=== PATIENT | female | born 1955 | race Caucasian/White ===

== ENCOUNTER 2021-07-10 14:42 | Emergency (ER) | payer MEDICARE ==
[~2021-07-10] VITALS: Ht 157.4 cm; Wt 90.7 kg
[~2021-07-10 14:42] MED LIST: ASPIRIN ADULT L81 M2 PO; HYDR25T PO; KEPPRA1000 MG PO; KEPPRA500 MG PO; LACTULOSE20 GM/30 M PO; LEVOFLOXACIN750 M2 PO; METOPROLOL SUCC50 M1 PO; MUCUS RELIEF600 MG PO; NORVASC10 MG PO; SIMVASTATIN10 MG PO; XANAX0.5 MG PO; XARE20MG PO; ZESTRIL40 MG PO
[2021-07-10] MEDS ORDERED: HYDROCHLOROTHIA25 M1 PO (14:57)
[2021-07-10] MEDS ORDERED: PHARMASSURE FO0.4 MG PO (14:58)
[2021-07-10] MEDS ORDERED: FISH OIL 1,0001 EAC2 PO (14:58)
[2021-07-10 15:58] LABS: BASO # 0.1 10*3/uL (0.0-0.1); BASO % 1.2 % (0.0-1.0); EOS # 0.2 10*3/uL (0.0-0.4); EOS % 2.6 % (1.0-4.0); HEMATOCRIT 36.7 % (37.0-47.0); LYMPH # 2.3 10*3/uL (1.3-4.4); LYMPH % 29.7 % (27.0-41.0); MEAN CELL VOLUME 90.4 fl (81.0-99.0); MEAN CORPUSCULAR HGB 30.8 pg (27.0-31.0); MEAN CORPUSCULAR HGB CONC 34.1 g/dl (33.0-37.0); MEAN PLATELET VOLUME 9.1 fl (9.6-12.3); MONO # 0.8 10*3/uL (0.1-1.0); MONO % 10.8 % (3.0-9.0); NEUT # 4.2 10*3/uL (2.3-7.9); NEUT % 55.4 % (47.0-73.0); PLATELET COUNT AUTOMATED 418 10*3/uL (130-400); RED BLOOD COUNT 4.06 10*6/uL (4.10-5.10); RED CELL DISTRI WIDTH 13.8 % (0-14.5); WHITE BLOOD COUNT 7.6 10*3/uL (4.8-10.8)
[2021-07-10 16:23] LABS: ALBUMIN 3.7 gm/dl (3.1-4.5); ALKALINE PHOSPHATASE 67 U/L (45-117); BUN 9 mg/dl (7-24); CHLORIDE 97 mmol/L (98-107); CREATININE 0.68 mg/dL (0.55-1.02); POTASSIUM 3.5 mmol/L (3.5-5.1); SGOT/AST 30 IU/L (3-35); SGPT/ALT 52 U/L (12-78); SODIUM 129 mmol/L (136-145)
[2021-07-10 16:30] LABS: BILIRUBIN Negative (Negative); BLOOD Negative (Negative); CLARITY Clear (Clear); COLOR Yellow (Yellow); GLUCOSE Negative (Negative); KETONE Negative (Negative); LEUKO ESTERASE Negative (Negative); NITRITE Negative (Negative); SPECIFIC GRAVITY 1.015 (1.001-1.030); UROBILINOGEN 0.2 E.U./dl (0.0-1.0)
[2021-07-10 16:46] LABS: BACTERIA 2+
[2021-07-10 16:47] LABS: EPITHELIAL CELLS 0-2; HYALINE CAST 0-2; WBC 0-2 wbc/hpf (0-5)
[2021-07-10 16:55] LABS: URINE AMPHETAMINES < 1000 (1000ng/ml); URINE BARBITURATES < 200 (200ng/ml); URINE BENZODIAZEPINES > 200 (200ng/ml); URINE CANNABINOIDS (THC) < 50 (50ng/ml); URINE COCAINE < 300 (300ng/ml); URINE METHADONE < 300 (300ng/ml); URINE OPIATES < 300 (300ng/ml); URINE PHENCYCLIDINE < 25 (25ng/ml)
[2021-07-10] MEDS ORDERED: LOW DOSE ASPIRI81 M1 PO ×3 (17:27→17:34)
[2021-07-10] MEDS ORDERED: 'XANAX0.5 MG PO (17:27)
[2021-07-10] MEDS ORDERED: LISINOPRIL40 MG PO ×3 (17:27→17:34)
[2021-07-10] MEDS ORDERED: TENORMIN25 M1 PO ×3 (17:27→17:34)
[2021-07-10] MEDS ORDERED: AMLODIPINE BESY10 MG PO ×3 (17:27→17:34)
[2021-07-10] MEDS ORDERED: ZOCOR10 MG PO ×3 (17:27→17:34)
[2021-07-10] MEDS ORDERED: HYDR25T PO ×3 (17:27→17:34)
[2021-07-10] MEDS ORDERED: B12-FOLIC ACID1 EACH PO ×3 (17:27→17:34)
== END 2021-07-10 17:40 | disposition home or self-care (01) ==
LOC: ED 14:42
PROVIDERS: Emergency Medicine
DX: I10 Essential (primary) hypertension (principal); Z76.0 Encounter for issue of repeat prescription; E78.00 Pure hypercholesterolemia, unspecified; I48.91 Unspecified atrial fibrillation; E78.5 Hyperlipidemia, unspecified; F17.210 Nicotine dependence, cigarettes, uncomplicated; F17.200 Nicotine dependence, unspecified, uncomplicated; Z79.899 Other long term (current) drug therapy

== ENCOUNTER 2021-07-21 12:49 | Inpatient (IN) | payer MEDICARE, MEDICAID ==
[~2021-07-21] VITALS: Ht 157.5 cm; Wt 105.3 kg
[2021-07-21] VITALS (7 sets, daily range): BP systolic 108–155; BP diastolic 60–90
[~2021-07-21 12:49] MED LIST changes: +'XANAX0.5 MG PO; +AMLODIPINE BESY10 MG PO; +B12-FOLIC ACID1 EACH PO; +FISH OIL 1,0001 EAC2 PO; +HYDROCHLOROTHIA25 M1 PO; +LISINOPRIL40 MG PO; +LOW DOSE ASPIRI81 M1 PO; +PHARMASSURE FO0.4 MG PO; +TENORMIN25 M1 PO; +ZOCOR10 MG PO
[2021-07-21 13:19] LABS: BASO # 0.1 10*3/uL (0.0-0.1); BASO % 1.1 % (0.0-1.0); EOS # 0.1 10*3/uL (0.0-0.4); EOS % 1.2 % (1.0-4.0); HEMATOCRIT 37.8 % (37.0-47.0); LYMPH # 1.8 10*3/uL (1.3-4.4); LYMPH % 27.1 % (27.0-41.0); MEAN CELL VOLUME 88.1 fl (81.0-99.0); MEAN CORPUSCULAR HGB 31.5 pg (27.0-31.0); MEAN CORPUSCULAR HGB CONC 35.7 g/dl (33.0-37.0); MONO # 0.5 10*3/uL (0.1-1.0); MONO % 8.3 % (3.0-9.0); PLATELET COUNT AUTOMATED 320 10*3/uL (130-400); RED BLOOD COUNT 4.29 10*6/uL (4.10-5.10); RED CELL DISTRI WIDTH 14.3 % (0-14.5); WHITE BLOOD COUNT 6.5 10*3/uL (4.8-10.8)
[2021-07-21 13:32] LABS: ACT PARTIAL THROMBO TIME 29.2 SECONDS (20.0-32.1)
[2021-07-21 13:36] LABS: ALBUMIN 3.9 gm/dl (3.1-4.5); ALKALINE PHOSPHATASE 65 U/L (45-117); BUN 8 mg/dl (7-24); CHLORIDE 89 mmol/L (98-107); POTASSIUM 3.6 mmol/L (3.5-5.1); SGOT/AST 40 IU/L (3-35); SGPT/ALT 70 U/L (12-78); SODIUM 123 mmol/L (136-145); TOTAL PROTEIN 8.2 gm/dL (6.4-8.2)
[2021-07-21 13:37] LABS: LIPASE 122 U/L (73-393)
[2021-07-21 22:06] LABS: BUN 9 mg/dl (7-24); CHLORIDE 91 mmol/L (98-107); POTASSIUM 3.9 mmol/L (3.5-5.1); SODIUM 123 mmol/L (136-145)
[2021-07-22 03:47] VITALS: BP 124/70
[2021-07-22 06:41] LABS: ALKALINE PHOSPHATASE 52 U/L (45-117); BUN 9 mg/dl (7-24); CHLORIDE 93 mmol/L (98-107); CHOLESTEROL 191 mg/dL (<200); CREATININE 0.53 mg/dL (0.55-1.02); LDL CHOLESTEROL 61 mg/dL (9-159); POTASSIUM 4.1 mmol/L (3.5-5.1); SGOT/AST 33 IU/L (3-35); SGPT/ALT 50 U/L (12-78); SODIUM 123 mmol/L (136-145); TRIGLYCERIDES 43 mg/dl (<150)
[2021-07-22 06:51] LABS: FREE T4 0.93 ng/dl (0.76-1.46)
[2021-07-22 07:12] LABS: BASO # 0.1 10*3/uL (0.0-0.1); EOS # 0.1 10*3/uL (0.0-0.4); EOS % 1.1 % (1.0-4.0); HEMATOCRIT 35.3 % (37.0-47.0); LYMPH # 1.8 10*3/uL (1.3-4.4); LYMPH % 22.2 % (27.0-41.0); MEAN CELL VOLUME 90.7 fl (81.0-99.0); MEAN CORPUSCULAR HGB CONC 34.6 g/dl (33.0-37.0); MEAN PLATELET VOLUME 8.9 fl (9.6-12.3); MONO % 11.6 % (3.0-9.0); NEUT # 5.2 10*3/uL (2.3-7.9); NEUT % 63.9 % (47.0-73.0); PLATELET COUNT AUTOMATED 265 10*3/uL (130-400); RED BLOOD COUNT 3.89 10*6/uL (4.10-5.10); RED CELL DISTRI WIDTH 14.9 % (0-14.5); WHITE BLOOD COUNT 8.2 10*3/uL (4.8-10.8)
[2021-07-22 07:13] LABS: MEAN CORPUSCULAR HGB 31.4 pg (27.0-31.0)
[2021-07-22 08:04] VITALS: BP 118/78
[2021-07-22 12:00] VITALS: BP 128/75
[2021-07-22 13:57] LABS: BILIRUBIN Negative (Negative); BLOOD Negative (Negative); CLARITY Cloudy (Clear); COLOR Yellow (Yellow); GLUCOSE Negative (Negative); KETONE Negative (Negative); LEUKO ESTERASE Trace (Negative); NITRITE Negative (Negative); PH 7.5 (4.5-8.0); UROBILINOGEN 0.2 E.U./dl (0.0-1.0)
[2021-07-22 14:14] LABS: BACTERIA 3+; RBC 0-2 rbc/hpf (0-2)
[2021-07-22 16:00] VITALS: BP 120/66
[2021-07-22 17:06] LABS: BUN 10 mg/dl (7-24); CHLORIDE 97 mmol/L (98-107); CREATININE 0.82 mg/dL (0.55-1.02); POTASSIUM 3.8 mmol/L (3.5-5.1); SODIUM 130 mmol/L (136-145)
[2021-07-22 20:00] VITALS: BP 131/70
[2021-07-23] VITALS: BP 134/79
[2021-07-23 06:35] LABS: BUN 14 mg/dl (7-24); CHLORIDE 102 mmol/L (98-107); CREATININE 0.64 mg/dL (0.55-1.02); POTASSIUM 4.6 mmol/L (3.5-5.1); SODIUM 130 mmol/L (136-145)
[2021-07-23 07:12] LABS: BASO # 0.1 10*3/uL (0.0-0.1); BASO % 1.1 % (0.0-1.0); EOS # 0.2 10*3/uL (0.0-0.4); EOS % 4.1 % (1.0-4.0); HEMATOCRIT 32.7 % (37.0-47.0); LYMPH # 1.5 10*3/uL (1.3-4.4); LYMPH % 26.9 % (27.0-41.0); MEAN CORPUSCULAR HGB 31.4 pg (27.0-31.0); MEAN PLATELET VOLUME 8.9 fl (9.6-12.3); MONO # 0.9 10*3/uL (0.1-1.0); MONO % 15.7 % (3.0-9.0); NEUT # 2.8 10*3/uL (2.3-7.9); PLATELET COUNT AUTOMATED 240 10*3/uL (130-400); RED BLOOD COUNT 3.44 10*6/uL (4.10-5.10); RED CELL DISTRI WIDTH 15.4 % (0-14.5); WHITE BLOOD COUNT 5.4 10*3/uL (4.8-10.8)
[2021-07-23 07:13] LABS: MEAN CELL VOLUME 95.1 fl (81.0-99.0)
[2021-07-23 08:00] VITALS: BP 159/94
[2021-07-23 12:00] VITALS: BP 132/81
[2021-07-23] MEDS ORDERED: PHARMASSURE FO0.4 MG PO (14:34)
[2021-07-23] MEDS ORDERED: 'XANAX0.5 MG PO (14:34)
[2021-07-23] MEDS ORDERED: LACTULOSE20 GM/30 M PO (14:34)
[2021-07-23] MEDS ORDERED: ZOCOR10 MG PO (14:34)
[2021-07-23] MEDS ORDERED: ZESTRIL40 MG PO (14:34)
[2021-07-23] MEDS ORDERED: AMLODIPINE BESY10 MG PO (14:34)
== END 2021-07-23 15:59 | disposition home or self-care (01) | DRG 897 ==
LOC: ED 12:49 → EDHOLD 17:22 → 4E 17:22 → EDHOLD 07-22 10:12 → 4E 07-22 11:29
PROVIDERS: Emergency Medicine; Student in an Organized Health Care Education/Training Program; ADMIT Internal Medicine; ATTEND Internal Medicine
DX: F13.239 Sedative, hypnotic or anxiolytic dependence with withdrawal, unspecified (principal); E87.1 Hypo-osmolality and hyponatremia; E87.2 Acidosis; Z68.41 Body mass index [BMI] 40.0-44.9, adult; F10.239 Alcohol dependence with withdrawal, unspecified; F41.9 Anxiety disorder, unspecified; I10 Essential (primary) hypertension; E78.5 Hyperlipidemia, unspecified; E87.8 Other disorders of electrolyte and fluid balance, not elsewhere classified; R73.9 Hyperglycemia, unspecified; Y90.6 Blood alcohol level of 120-199 mg/100 ml; Z85.118 Personal history of other malignant neoplasm of bronchus and lung; Z98.2 Presence of cerebrospinal fluid drainage device; E66.01 Morbid (severe) obesity due to excess calories; Z80.1 Family history of malignant neoplasm of trachea, bronchus and lung; Z80.3 Family history of malignant neoplasm of breast; Z79.82 Long term (current) use of aspirin; Z79.899 Other long term (current) drug therapy

== ENCOUNTER 2022-08-05 15:13 | Emergency (ER) | payer MEDICARE ==
[~2022-08-05] VITALS: Wt 108.9 kg
== END 2022-08-05 15:57 | disposition left against medical advice (07) ==
LOC: ED 15:13
DX: I10 Essential (primary) hypertension (principal); Z76.0 Encounter for issue of repeat prescription; Z79.899 Other long term (current) drug therapy; Z87.891 Personal history of nicotine dependence